=== PATIENT | male | born 2005 | race African-American/Black ===

== ENCOUNTER 2024-06-25 20:29 | Emergency (ER) | payer OTHER, SELFPAY ==
[2024-06-25 20:33] VITALS: BP 125/82; PULSE 81; RESP 18; TEMP 37.2; O2SAT 100; BMI 28.1
--- NOTE | 2024-06-25 20:33 | ED_ITS ---
HPI - General Adult General Chief complaint: ETOH/Substance Use Stated complaint: Vaped/doesn't feel well Time Seen by Provider: 06/25/24 23:21 History of Present Illness ED Provider: Rita MARIE narrative: The patient is a 19-year-old male who was in a program with the [employer] at the [employer]. Today he felt unwell after vaping. He said that he use somebody else's vape device. He does not know what was in the vape device. He says that he felt like he got high. He says that he felt that it was a weird high and that he felt very strange. He denies doing anything to harm himself. He denies being suicidal. He is from [place], [place]. He says he takes some kind of psychiatric medication but he can not remember the name. Related Data Allergies Allergy/AdvReac Type Severity Reaction Status Date / Time No Known Allergies Allergy Verified 06/25/24 20:38 Review of Systems 2 Review of Systems: Yes all other systems are reviewed and are negative [facility] Social History Social History Advance Directives: No Advance Directives Information Provided: Yes Physical Exam ED Vital Signs: Vital Signs - 24 hr 06/25/24 20:33 Temperature 98.9 F Pulse Rate 81 Respiratory Rate 18 Blood Pressure 125/82 Pulse Oximetry 100 Oxygen Delivery Method Room Air BMI result Body Mass Index 28.1 Const Other: The patient was initially very sound asleep. I let him sleep for awhile and re- examined him sometime later. He was then more arousable. He was coherent although still tired. He did not seem in distress. HENMT Other: Face is symmetrical. Mucous membranes moist. Eyes Other: Pupils are round, equal, and reactive to light. Extraocular movements are intact. Conjunctivae are somewhat injected. Neck Neck: Yes full ROM and Yes supple Resp Effort & Inspection: normal respiratory effort Auscultation: clear to auscultation bilaterally Cardio Rate: regular rate Rhythm: regular rhythm Heart sounds: S1 normal heart sound present and S2 normal heart sound present GI Other: Abdomen is soft and nontender Skin Other: Skin is dry and unremarkable Neuro Other: Patient was initially very sleepy. Later he was less sleepy. He was coherent although tired. Cranial nerves are intact. His neck is supple. He moves his extremities normally. Extrem Other: No peripheral edema Course Course Course Narrative: This is a Rapid Medical Exam performed in triage by Rut Jeffery PA-C. Full HPI, ROS and PE to be performed by primary ED provider. 19 yo M presenting to the ED c/o taking a hit of an unknown vape pen & now feeling unwell 1-2hrs [facility]. Admits to feeling high, whole body feels weird PE: appears under the influence Plan: labs, GAGE Medical Decision Making Medical Decision Making MDM Narrative: The patient is a 19-year-old with a [employer] program at [employer]. He is from [place], [place]. He apparently felt unwell after using somebody else's vaping device. He denies doing anything else in the way of drugs or doing anything to harm himself. He was sleepy and was allowed to sleep for a few hours. Later he was more alert and coherent. At that point I felt he was safe to be discharged to return to [employer]. He is advised to be careful with vaping in the future. Lab Data 06/25/24 20:45 06/25/24 20:45 Labs: Lab Results 06/25/24 Range/Units 20:45 WBC 6.3 (4.8-10.8) X10*3/uL RBC 5.19 (4.60-5.80) X10*6/uL Hgb 14.9 (14.0-18.0) g/dl Hct 44.0 (42.0-52.0) % MCV 84.8 (80.0-98.0) fL MCH 28.7 (27.0-33.0) pg MCHC 33.9 (31.0-36.0) g/dl RDW 13.9 (11.0-16.0) % Plt Count 223 (160-400) X10*3/uL MPV 10.5 (9.4-12.4) fL Immature Gran % (Auto) 0.2 (0.0-0.4) % Neut % (Auto) 61.5 (45-73) % Lymph % (Auto) 29.6 (20-40) % Dixon % (Auto) 6.2 (2-11) % Eos % (Auto) 1.9 (0-4) % Baso % (Auto) 0.6 (0-2) % Lymph # (Auto) 1.9 (1.2-4.9) X10*3/uL Dixon # (Auto) 0.4 (0.1-1.2) X10*3/uL Eos # (Auto) 0.1 (0.0-0.4) X10*3/uL Baso # (Auto) 0.0 (0.0-0.2) X10*3/uL Abs Immat Gran (auto) 0.01 (0.00-0.03) X10*3/uL Absolute Neuts (auto) 3.9 (2.0-8.3) x10*3/uL Absolute Nucleated RBC 0.000 (0.0-0.012) X10*3/uL Nucleated RBC % (auto) 0.0 (0.0-0.2) /100WBC Sodium 144 (135-145) mmol/L Potassium 3.9 (3.3-5.1) mmol/L Chloride 104 (96-108) mmol/L Carbon Dioxide 28 (22-29) mmol/L Anion Gap 16 (12-20) BUN 8 L (9-16) mg/dL Creatinine 1.17 (0.5-1.4) mg/dL Estim Creat Clear Calc 116.4 Estimated GFR > 60 Random Glucose 95 (60-115) mg/dL Calcium 9.6 (8.4-10.2) mg/dL Magnesium 2.2 (1.6-2.6) mg/dL Total Bilirubin 0.6 (0.0-1.0) mg/dL Direct Bilirubin 0.2 (0.0-0.5) mg/dL AST 21 (5-37) U/L ALT 15 (0-40) U/L Alkaline Phosphatase 152 H (39-117) U/L Total Protein 7.5 (6.5-8.0) g/dL Albumin 4.7 (3.5-5.0) g/dL Ethyl Alcohol < 10 mg/dL Discharge Plan Discharge Clinical Impression: Adverse effect of drug Patient Disposition: Home, Self-Care Additional Instructions: Please rest and take it easy tonight. Continue your regular medications. Avoid vaping in the future. Return to the emergency room if worse. Print Language: Kyrgyz
[2024-06-25 21:01] LABS: Basophils Percent Auto 0.6 % (0-2); Eosinophils Absolute Auto 0.1 X10*3/uL (0.0-0.4); Eosinophils Percent Auto 1.9 % (0-4); Hemoglobin 14.9 g/dl (14.0-18.0); Imm Gran Abs Auto 0.01 X10*3/uL (0.00-0.03); Imm Gran Pct Auto 0.2 % (0.0-0.4); Lymphocytes Absolute Auto 1.9 X10*3/uL (1.2-4.9); Lymphocytes Percent Auto 29.6 % (20-40); MANUAL DIFF FLAG NO; Mean Corpuscular HGB Conc 33.9 g/dl (31.0-36.0); Mean Corpuscular Hemoglobin 28.7 pg (27.0-33.0); Mean Corpuscular Volume 84.8 fL (80.0-98.0); Mean Platelet Volume 10.5 fL (9.4-12.4); Monocytes Absolute Auto 0.4 X10*3/uL (0.1-1.2); Monocytes Percent Auto 6.2 % (2-11); Neutrophils Absolute Auto 3.9 x10*3/uL (2.0-8.3); Neutrophils Percent Auto 61.5 % (45-73); Platelet Count 223 X10*3/uL (160-400); Red Blood Count 5.19 X10*6/uL (4.60-5.80); Red Cell Distribution Width 13.9 % (11.0-16.0); White Blood Count 6.3 X10*3/uL (4.8-10.8)
[2024-06-25 21:16] LABS: Alanine Aminotransferase 15 U/L (0-40); Albumin Level 4.7 g/dL (3.5-5.0); Alkaline Phosphatase 152 U/L (39-117); Anion Gap 16 (12-20); Aspartate Amino Transferase 21 U/L (5-37); Bilirubin Direct 0.2 mg/dL (0.0-0.5); Bilirubin Total 0.6 mg/dL (0.0-1.0); Blood Urea Nitrogen 8 mg/dL (9-16); Calcium 9.6 mg/dL (8.4-10.2); Carbon Dioxide 28 mmol/L (22-29); Chloride 104 mmol/L (96-108); Creatinine Clr Calc Pharmacy 116.4; Estimated Glomerular Filt Rate > 60; Ethanol < 10 mg/dL; Glucose Random 95 mg/dL (60-115); Magnesium 2.2 mg/dL (1.6-2.6); Potassium 3.9 mmol/L (3.3-5.1); Sodium 144 mmol/L (135-145); Total Protein 7.5 g/dL (6.5-8.0)
[2024-06-26 02:33] VITALS: BP 121/73; PULSE 86; RESP 20; TEMP 37; O2SAT 100
== END 2024-06-26 01:32 | disposition home or self-care (01) ==
PROVIDERS: Physician Assistant; Emergency Provider Emergency Medicine
DX: T50.901A Poisoning by unspecified drugs, medicaments and biological substances, accidental (unintentional), initial encounter (principal); Y92.218 Other school as the place of occurrence of the external cause
CPT/HCPCS: 36415; 80048; 80076; 80307; 83735; 85025; 99282; 99283